=== PATIENT | male | born 1940 | race Asian ===

== ENCOUNTER 2018-02-03 19:59 | Emergency (ER) | payer SELFPAY ==
[2018-02-03] MEDS ORDERED: Labetalol IV* 5 MG/ML 20 ML VIAL IV PUSH ONE (21:13)
--- NOTE | 2018-02-03 21:16 | ED ---
Back Pain - HPI Summary HPI Summary: A 78 y/o male presents to ED c/o upper back pain. Currently, the patient's pain has reduced as it is almost gone. In the ED room, the patient has a pulse of 90 BPM, O2 saturation of 100% and blood pressure of 182/89. As per triage, "Pt stated that she had severe back pain bilaterally under shoulder blades with severe sweating that lasted around 15 minutes. Pt stated that before that he had eaten a lot of cashews. Pt has cardiac HX (2011)". According to the patient , he was cooking when he felt a sudden and very severe pain in his upper back ( near base of back of neck and between shoulder blades) approximately occurring at 1715. Additionally he was very diaphoretic for about 15 minutes along with the pain. Denies any SOB. PMHx of quad bypass in 2011. Patient takes Aspirin ( 75 mg, from [facility]) and minor AR (left arm pain with AR, no back pain). Patient is visiting from [facility], has been here for 2.5 weeks. - History of Current Complaint Chief Complaint: EDChestPainROMI Stated Complaint: POSSIBLE HEART ATTACK/QUAD BIPASS Time Seen by Provider: 02/03/18 20:58 Hx Obtained From: Patient Onset/Duration: Sudden Onset, Lasting Minutes, Resolved Onset/Duration: Started Hours Ago, Resolved Timing: Constant Back Pain Location: Is Discrete @ - Upper back Severity Initially: Severe Pain Intensity: 0 Pain Scale Used: 0-10 Numeric Aggravating Symptom(s): Nothing Alleviating Symptom(s): Nothing Associated Signs And Symptoms: Positive: Negative - Allergies/Home Medications Allergies/Adverse Reactions: Allergies Allergy/AdvReac Type Severity Reaction Status Date / Time No Known Allergies Allergy Verified 02/03/18 20:07 Home Medications: Home Medications Aspirin 81 mg PO DAILY 02/03/18 [History Confirmed 02/03/18] Carbamazepine [Tegretol] 200 mg PO TID 02/03/18 [History Confirmed 02/03/18] Metoprolol Succinate XL TAB* [Toprol XL TAB*] 25 mg PO DAILY 02/03/18 [History Confirmed 02/03/18] Multivitamin [Multivitamins] 1 cap PO DAILY 02/03/18 [History Confirmed 02/03/18 ] PMH/Surg Hx/FS Hx/Imm Hx Endocrine/Hematology History: Denies: Hx Diabetes Cardiovascular History: Reports: Hx Hypertension Respiratory History: Denies: Hx Asthma - Surgical History Surgery Procedure, Year, and Place: Quad bypass Infectious Disease History: No Infectious Disease History: Reports: Traveled Outside the [place] in Last 30 Days - ELISA - Family History Known Family History: Positive: Other - AR Negative: Hypertension, Diabetes - Social History Alcohol Use: None Substance Use Type: Reports: None Smoking Status (MU): Never Smoked Tobacco Review of Systems Positive: Skin Diaphoresis. Negative: Fever Positive: Other - POSITIVE: upper back pain All Other Systems Reviewed And Are Negative: Yes Physical Exam - Summary Physical Exam Summary: VITAL SIGNS: Reviewed. GENERAL: Patient is a well-developed and nourished male who is lying comfortable in the stretcher. Patient is not in any acute respiratory distress. Normal exam. HEAD AND FACE: No signs of trauma. No ecchymosis, hematomas or skull depressions. No sinus tenderness. EYES: PERRLA, EOMI x 2, No injected conjunctiva, no nystagmus. EARS: Hearing grossly intact. Ear canals and tympanic membranes are within normal limits. MOUTH: Oropharynx within normal limits. NECK: Supple, trachea is midline, no adenopathy, no JVD, no carotid bruit, no c- spine tenderness, neck with full ROM. CHEST: Symmetric, no tenderness at palpation LUNGS: Clear to auscultation bilaterally. No wheezing or crackles. CVS: Regular rate and rhythm, S1 and S2 present, no murmurs or gallops appreciated. ABDOMEN: Soft, non-tender. No signs of distention. No rebound no guarding, and no masses palpated. Bowel sounds are normal. EXTREMITIES: FROM in all major joints, no edema, no cyanosis or clubbing. NEURO: Alert and oriented x 3. No acute neurological deficits. Speech is normal and follows commands. SKIN: Dry and warm Triage Information Reviewed: Yes Vital Signs On Initial Exam: Initial Vitals Temp Pulse Resp BP Pulse Ox 98.1 F 87 18 194/83 100 02/03/18 20:03 02/03/18 20:03 02/03/18 20:03 02/03/18 20:03 02/03/18 20:03 Vital Signs Reviewed: Yes Diagnostics - Vital Signs Vital Signs Temp Pulse Resp BP Pulse Ox 02/03/18 20:03 98.1 F 87 18 194/83 100 - Laboratory Result Diagrams: 02/03/18 21:52 02/03/18 21:51 Lab Statement: Any lab studies that have been ordered have been reviewed, and results considered in the medical decision making process. - Radiology CXR Radiology Interpretation Completed By: ED Physician - NO ACUTE PROCESS. PENDING OFFICIAL REPORT. - CT CTA Chest/Abdomen/Pelvis CT Interpretation Completed By: Radiologist - CHEST: 1. No aortic dissection, aneurysm, or rupture. No additional findings to correlate with patient's symptomatology. ABDOMEN/PELVIS: 1. No aortic dissection, aneurysm, or rupture. No additional findings to correlate with patient's symptomatology. 2. Simple left renal cyst. 3. Moderate prostatomegaly. 4. Left inguinal hernia. No strangulation. ED PHYSICIAN REVIEWED THIS RADIOLOGY REPORT. - EKG 2019 Cardiac Rate: NL - 85 BPM EKG Rhythm: Sinus Rhythm EKG Interpretation: Q-wave in lead 3. Re-Evaluation - Re-Evaluation First Eval Re-Evaluation Time: 22:35 Change: Improved Comment: Patient feels much better. Patient is improved and is pain free. Patient has been pain free throughout time spent in [facility]. Back Pain Course/Dx - Course Course Of Treatment: A 78 y/o male presents to ED c/o upper back pain. Currently , the patient's pain has reduced as it is almost gone. In the ED room, the patient has a pulse of 90 BPM, O2 saturation of 100% and blood pressure of 182/ 89. A EKG revealed NSR of 85 BPM, Q-wave in lead 3. A CTA Chest/Abdomen/Pelvis revealed 1. No aortic dissection, aneurysm, or rupture. No additional findings to correlate with patient's symptomatology. 2. Simple left renal cyst. 3. Moderate prostatomegaly. 4. Left inguinal hernia. No strangulation. A CXR revealed no acute process. In the ED course, the patient recieved Visipaque and Trandate. During reevaluation, the patient revealed he was feeling much better. He has improved and is pain free. Patient has been pain free throughout time spent in [facility]. Patient will be discharged with a diagnosis of back pain and HTN. Patient will be sent home with Toprol. Patient is to follow up with PCP in 1-2 days. Patient is agreeable with this plan. - Diagnoses Provider Diagnoses: Back pain, HTN (hypertension) Discharge - Sign-Out/Discharge Documenting (check all that apply): Patient Departure - DISCHARGE - Discharge Plan Condition: Stable Disposition: HOME Prescriptions: Metoprolol Succinate XL TAB* [Toprol XL TAB*] 25 mg PO DAILY #30 tab.xl Patient Education Materials: Back Pain (ED), Hypertension (ED) Referrals: No Primary Care Phys,NOPCP [Primary Care Provider] - [facility] [Outside] - 2 Days Additional Instructions: FOLLOW UP WITH PRIMARY CARE OR [facility] IN 1-2 DAYS. TAKE MEDICATION PRESCRIBED. RETURN TO ED FOR ANY NEW OR WORSENING SYMPTOMS. - Attestation Statements Document Initiated by Scribe: Yes Documenting Scribe: Horacio Cash Provider For Whom Scribe is Documenting (Include Credential): Ana Rosa Alves MD Scribe Attestation: Horacio Webster, scribed for Ana Rosa Alves MD on 02/03/18 at 0701.
[2018-02-03] MEDS ORDERED: Iodixanol* (CONTRAST) 320 MG/ML 100 ML SDV IV ONE (21:33)
[2018-02-03 22:02] LABS: ABS Basophils 0.1 10^3/ul (0-0.2); ABS Eosinophils 0.3 10^3/ul (0-0.6); ABS Lymphocytes 1.7 10^3/ul (1.0-4.8); ABS Monocytes 0.6 10^3/ul (0-0.8); ABS Neutrophils 4.5 10^3/ul (1.5-7.7); ABS Nucleated RBC 0.1 10^3/ul; Hematocrit 43 % (42-52); Hemoglobin 14.7 g/dl (14.0-18.0); Lymphocyte % 23.6 % (25-47); Mean Corpuscular HGB Conc 34 g/dl (31-36); Mean Corpuscular Hemoglobin 30 pg (27-31); Mean Corpuscular Volume 88 fL (80-94); Mean Platelet Volume 7.3 um3 (7.4-10.4); Nucleated Red Blood Cells % 0.8; Platelet Count 237 10^3/ul (150-450); Red Cell Distribution Width 14 % (10.5-15); White Blood Count 7.2 10^3/ul (3.5-10.8)
--- NOTE | 2018-02-03 22:03 | RAD ---
EXAM: CT Angiography Chest With Intravenous Contrast CLINICAL HISTORY: 78 years old, male; Pain; Other: Pt stated that she had severe back pain bilaterally under shoulder blades with severe sweating that lasted around 15 minutes. Pt stated that before that he had eaten a lot of cashews. Pt has cardiac HX (2011). ; Prior surgery; Surgery date: 6+ months; Surgery type: Quad bypass; Additional info: Dissection. TECHNIQUE: Axial computed tomographic angiography images of the chest with intravenous contrast using pulmonary embolism protocol. All CT scans at this facility use at least one of these dose optimization techniques: automated exposure control; mA and/or kV adjustment per patient size (includes targeted exams where dose is matched to clinical indication); or iterative reconstruction. 3D and MIP reconstructed images were created and reviewed. Coronal and sagittal reformatted images were created and reviewed. CONTRAST: 100 mL of [id number] administered intravenously. COMPARISON: No relevant prior studies available. FINDINGS: Pulmonary arteries: Pulmonary arteries are well opacified to the subsegmental branches. Normal caliber main pulmonary artery. No filling defects throughout the pulmonary artery tree. Aorta: Mild aortic atherosclerotic calcifications. No aortic dissection, aneurysm, or rupture. Lungs: No pulmonary nodules, masses, or consolidations. No bronchiectasis, peribronchial thickening, or luminal defects. Pleural space: Normal. No significant effusion. No pneumothorax. Heart: There is moderate atherosclerotic calcification of the coronary arteries. 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 No significant pericardial effusion. No evidence of RV dysfunction. Mediastinum: Normal esophagus with no esophageal stranding or wall thickening. Thyroid: No thyroid nodules. Bones/joints: The thoracic spine demonstrates mild degenerative changes at multiple levels. No fractures. No suspicious bone lesions. No dislocation. Soft tissues: Normal. Lymph nodes: Normal. No enlarged lymph nodes. IMPRESSION: No aortic dissection, aneurysm, or rupture. No additional findings to correlate with patient's symptomatology. EXAM: CT Angiography Abdomen and Pelvis With Intravenous Contrast CLINICAL HISTORY: 78 years old, male; Pain; Other: Pt stated that she had severe back pain bilaterally under shoulder blades with severe sweating that lasted around 15 minutes. Pt stated that before that he had eaten a lot of cashews. Pt has cardiac HX (2011). ; Prior surgery; Surgery date: 6+ months; Surgery type: Quad bypass; Additional info: Dissection. TECHNIQUE: Axial computed tomographic angiography images of the abdomen and pelvis with intravenous contrast. All CT scans at this facility use at least one of these dose optimization techniques: automated exposure control; mA and/or kV adjustment per patient size (includes targeted exams where dose is matched to clinical indication); or iterative reconstruction. 3D and MIP reconstructed images were created and reviewed. Coronal and sagittal reformatted images were created and reviewed. CONTRAST: 100 mL of [id number] administered intravenously. 100 mL of [id number] administered intravenously. COMPARISON: No relevant prior studies available. FINDINGS: VASCULATURE: Aorta: Mild aortic atherosclerotic calcifications. No aortic dissection, aneurysm, or rupture. Patent IVC. Celiac trunk and mesenteric arteries: Normal. No occlusion or stenosis. Renal arteries: Normal. No occlusion or significant stenosis. Iliac arteries: Normal. No occlusion or stenosis. Lung bases: Normal. No mass. No consolidation. ABDOMEN: Liver: Normal. No mass. Gallbladder and bile ducts: Normal. No calcified stones. No ductal dilation. Pancreas: Normal. No ductal dilation. No mass. Spleen: Normal. No splenomegaly. Adrenals: Normal. No mass. Kidneys and ureters: Left renal midpole simple cyst measures 3.4 cm. No calculi or pelvocaliectasis. No hydronephrosis. Stomach and bowel: Incompletely distended grossly normal stomach. Normal caliber small bowel. No colonic masses or segmental wall thickening. PELVIS: Appendix: Normal caliber appendix without wall thickening or adjacent inflammation. Bladder: Thin-walled bladder with no focal nodularity, perivesicular stranding, or calcifications. Reproductive: Moderate prostate enlargement. Normal seminal vesicles ABDOMEN and PELVIS: Intraperitoneal space: Normal. No significant fluid collection. No free air. Bones/joints: The spine demonstrates mild degenerative changes at multiple levels. No fractures. No suspicious bone lesions. No dislocation. Soft tissues: Right inguinal subcutaneous scarring. Fat-containing direct left inguinal hernia. No stranding. Lymph nodes: Normal. No enlarged lymph nodes. IMPRESSION: 1. No aortic dissection, aneurysm, or rupture. No additional findings to correlate with patient's symptomatology. 2. Simple left renal cyst. 3. Moderate prostatomegaly. 4. Left inguinal hernia. No strangulation.
[2018-02-03 22:19] LABS: EGFR Non-African American 88.4 (>60)
[2018-02-03 22:22] LABS: INR 0.89 (0.77-1.02)
[2018-02-03 22:58] VITALS: BP 119/67
--- NOTE | 2018-02-04 07:58 | RAD ---
HISTORY: Back pain COMPARISONS: None VIEWS: 1: frontal portable view of the chest at 9:50 PM FINDINGS: LINES AND TUBES: Epicardial pacer wires are noted.. CARDIOMEDIASTINAL SILHOUETTE: The cardiomediastinal silhouette is normal for portable technique. PLEURA: The costophrenic angles are sharp. No pleural abnormalities are noted. LUNG PARENCHYMA: The lungs are clear. ABDOMEN: The upper abdomen is clear. There is no subphrenic gas. BONES AND SOFT TISSUES: The patient is status post median sternotomy. IMPRESSION: NO ACTIVE CARDIOPULMONARY DISEASE. R0
== END 2018-02-03 23:13 | disposition home or self-care (01) ==
LOC: ED 19:59
DX: M54.9 Dorsalgia, unspecified (principal); I25.2 Old myocardial infarction; I10 Essential (primary) hypertension; N28.1 Cyst of kidney, acquired; N40.0 Benign prostatic hyperplasia without lower urinary tract symptoms; K40.90 Unilateral inguinal hernia, without obstruction or gangrene, not specified as recurrent; Z79.82 Long term (current) use of aspirin; Z79.899 Other long term (current) drug therapy
CPT/HCPCS: 36415; 71045; 71275; 74174; 80053; 83605; 83735; 84484; 85025; 85610; 85730; 86850; 86900; 86901; 93005; 96374; 99283; Q9967